=== PATIENT | female | born 1970 | race Caucasian/White ===

== ENCOUNTER 2022-02-26 12:01 | Emergency (ER) | payer OTHER, SELFPAY ==
[2022-02-26 12:25] VITALS: BP 138/74; PULSE 75; RESP 18; TEMP 36.4; O2SAT 96; BMI 36.2
--- NOTE | 2022-02-26 12:37 | DI.RAD.S_ITS ---
PROCEDURE: XR SHOULDER RT MIN 2V INDICATIONS: right shoulder pain TECHNIQUE: 3 views of the shoulder were acquired. COMPARISON: None. FINDINGS: Bones: No acute fractures or dislocations. No suspicious bony lesions. Visualized ribs appear intact. Soft tissues: No suspicious soft tissue calcifications. IMPRESSION: No acute osseous abnormality. If clinical suspicion and/or symptoms persist, additional imaging with repeat plain films, or advanced imaging (e.g. CT, MRI) may be helpful for further assessment. Dictated by: Amauri Barillas M.D. on 02/26/2022 at 13:34 Approved by: Amauri Barillas M.D. on 02/26/2022 at 13:38
--- NOTE | 2022-02-26 13:53 | ED_ITS ---
HPI - Extremity Injury (Upper) <Es Jones, [facility] - Last Filed: 02/26/22 16:21> General Chief Complaint: Extremity Injury, Upper Stated Complaint: poss. 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 She states that it is above ribs, and this is when she noticed the pain in her right shoulder initi ally. This is an L and I claim, states that she has pain with shoulder flexion, abduction, tenderness to palpation over the anterior speck of her right shoulder and across the top of her right shoulder. She denies having a primary care provider, she denies taking any medication for this, states that she has been riding her motorcycle and it is painful to ride her motorcycle. She denies any sensation changes in her fingers, denies any injury or pain in her elbow wrist or elsewhere. She endorses some muscle cramping in her the back of her shoulder, complains of worsening pain with activity. She states that she is currently moving, and doing a lot, has not stop to rest her shoulder at all. Patient states that she quit smoking and is right-handed. Related Data Home Medications Medication Instructions Recorded Confirmed Cyclobenzaprine Hydrochloride 10 mg PO #0 08/25/07 (CYCLOBENZAPRINE HCL) [MELOXICAM 15 MG PRN] #0 08/25/07 Propoxyphene/Acetamin - 0 PO * UK DOSE/FREQUENCY #0 10/13/07 (Darvocet-N 100) [NEURONTIN] #0 10/13/07 Previous Rx's Medication Instructions Recorded hydrocodone 5 mg-acetaminophen 325 1 tab PO BID PRN #14 tab 02/26/22 mg tablet lidocaine 5 % topical patch 1 patch TOPICAL DAILY PRN #15 ea 02/26/22 methocarbamol 500 mg tablet 500 mg PO TID #14 tab 02/26/22 naproxen 250 mg tablet 250 mg PO BID PRN #30 tab 02/26/22 Allergies Allergy/AdvReac Type Severity Reaction Status Date / Time No Known Drug Allergies Allergy Verified 02/26/22 12:33 Review of Systems <JABARI Louis - Last Filed: 02/26/22 16:21> Review of Systems Narrative: General: denies fever, chills, malaise, sweats, fatigue Head/Neck: denies headache, neck pain, dizziness Eyes: denies visual changes, eye pain Cardio: denies chest pain, palpitations, edema Respiratory: denies dyspnea, cough, orthopnea GI: denies abdominal pain, nausea, vomiting, or diarrhea : denies dysuria, hematuria, urinary retention, frequency or incontinence MSK: Endorses right shoulder pain the anterior aspect and along the top, denies any sensation changes or other joint pain, denies any muscle weakness Skin: denies rash, itching, skin lesions or other Neuro: denies numbness, tingling Patient History <JABARI Louis - Last Filed: 02/26/22 16:21> Social History Smoking Status: Former smoker Smoking Status: Former smoker alcohol intake frequency: holidays/special occasions only Substance Use Type: does not use Exam <JABARI Louis - Last Filed: 02/26/22 16:21> Narrative Exam Narrative: Independently reviewed vitals signs and nursing notes. General: cooperative, comfortable, in no acute distress, well developed and well groomed Head: atraumatic, symmetrical facial expressions Neck: supple, atraumatic, without lymphadenopathy. Eyes: pupils equal round and reactive, EOMI, conjunctiva normal Nose: nares patent, no rhinorrhea Mouth/Throat: uvula midline, moist mucus membranes Cardiovascular: regular rate and rhythm, no peripheral edema, warm extremities Respiratory: normal effort, able to speak in complete sentences, no audible wheezing, stridor, or rales. No retractions or tachypnea. GI: abdomen soft, nontender to palpation, nondistended, no masses, no exquisite tenderness with exam, without guarding or rebound. MSK: moves all extremities, ambulatory w/steady gait, neurovascularly intact, no weakness, no range of motion deficit in patient's right shoulder, shoulder flexion is limited due to pain only past 90?, no pain with extension of her right shoulder, pain worse with external rotation and abduction, tenderness to palpation along the anterior aspect, no tenderness over AC joint, scapula, clavicle, no sensation changes distal to her right shoulder. Full range of motion appears intact. Skin: brisk capillary refill, no rash, no erythema Neuro: normal speech and cognition, A&O x3, normal tone Psych: mental status is grossly normal, congruent mood, normal affect, pleasant and cooperative Initial Vital Signs Initial Vital Signs: Vital Signs Temperature 97.6 F 02/26/22 12:25 Pulse Rate 75 02/26/22 12:25 Respiratory Rate 18 02/26/22 12:25 Blood Pressure 138/74 02/26/22 12:25 Pulse Oximetry 96 02/26/22 12:25 <Juliane Ashofrd MD - Last Filed: 02/27/22 09:46> Initial Vital Signs Initial Vital Signs: Vital Signs Temperature 97.6 F 02/26/22 12:25 Pulse Rate 75 02/26/22 12:25 Respiratory Rate 18 02/26/22 12:25 Blood Pressure 138/74 02/26/22 12:25 Pulse Oximetry 96 02/26/22 12:25 Course <JABARI Louis - Last Filed: 02/26/22 16:21> Orders Ordered: Discontinued Medications Hydrocodone Bitart/Acetaminophen (Hydrocodone/Acet 5/325 Tablet) 1 tab PO NOW ONE Stop: 02/26/22 14:06 Last Admin: 02/26/22 14:10 Dose: 1 tab Documented by: OXANA Ketorolac Tromethamine (Ketorolac 30 Mg/Ml Vial) 15 mg IM NOW ONE Stop: 02/26/22 14:06 Last Admin: 02/26/22 14:11 Dose: 15 mg Documented by: OXANA Lidocaine (Lidocaine Patch 1 Each Adh..Patch) 1 each TOP NOW ONE Stop: 02/26/22 14:06 Last Admin: 02/26/22 14:11 Dose: 1 each Documented by: OXANA Vital Signs Vital signs: Vital Signs - 8 hr 02/26/22 12:25 02/26/22 14:15 Temperature 97.6 F Pulse Rate 75 63 Respiratory Rate 18 18 Blood Pressure 138/74 139/71 Pulse Oximetry 96 100 <Juliane Ashford MD - Last Filed: 02/27/22 09:46> Orders Ordered: Discontinued Medications Hydrocodone Bitart/Acetaminophen (Hydrocodone/Acet 5/325 Tablet) 1 tab PO NOW ONE Stop: 02/26/22 14:06 Last Admin: 02/26/22 14:10 Dose: 1 tab Documented by: OXANA Ketorolac Tromethamine (Ketorolac 30 Mg/Ml Vial) 15 mg IM NOW ONE Stop: 02/26/22 14:06 Last Admin: 02/26/22 14:11 Dose: 15 mg Documented by: OXANA Lidocaine (Lidocaine Patch 1 Each Adh..Patch) 1 each TOP NOW ONE Stop: 02/26/22 14:06 Last Admin: 02/26/22 14:11 Dose: 1 each Documented by: OXANA Vital Signs Vital signs: Vital Signs - 8 hr 02/26/22 12:25 02/26/22 14:15 Temperature 97.6 F Pulse Rate 75 63 Respiratory Rate 18 18 Blood Pressure 138/74 139/71 Pulse Oximetry 96 100 [facility] - Extremity Injury (Upper) <JABARI Louis - Last Filed: 02/26/22 16:21> Imaging Data Extremity x-ray #1: Radiologist's Impression: PROCEDURE:? XR SHOULDER RT MIN 2V ? INDICATIONS:? right shoulder pain ? TECHNIQUE:? 3 views of the shoulder were acquired.? ? COMPARISON:? None. ? FINDINGS:? ? Bones:? No acute fractures or dislocations.? No suspicious bony lesions.? Visualized ribs appear intact.? ? Soft tissues:? No suspicious soft tissue calcifications.? ? IMPRESSION:? No acute osseous abnormality.? If clinical suspicion and/or symptoms persist, additional imaging with repeat plain films, or advanced imaging (e.g. CT, MRI) may be helpful for further assessment. ? ? Dictated by: Amauri Barillas M.D. on 02/26/2022 at 13:34 ? ? Approved by: Amauri Barillas M.D. on 02/26/2022 at 13:38 ? [facility] Narrative Medical decision making narrative: This is a 51-year-old female presents to the emergency department with right shoulder pain for 1 month, states it is a work related injury from lifting heavy garbage in thrown into the garbage can. Patient does not have a primary care provider, has not sought any treatment for this thus far, x-rays negative for any osseous abnormality, dislocation, ribs appear intact and no acute fractures of the right shoulder., abduction, external rotation. Suspect likely rotator cuff injury, encouraged patient to ice, reduce repetitive movements, use anti- inflammatories, lidocaine patches, Voltaren gel for relief, recommend sling for when patient is out of the house, and gentle range of motion while at home, no jarring movements or exacerbation pain. Patient was given referral/contact information for [facility] for follow-up, and a referral was placed to Dr. Chapa, this is likely a nonsurgical, inflammatory injury which may improve with corticosteroid injection. Recommend follow-up with orthopedics for evaluation and then if recommended corticosteroid injection or ongoing supportive care. Patient is appropriate and amenable to discharge home. Vital signs are stable on repeat examination is unremarkable. Patient has been informed of results. Patient has been given strict return to ER precautions for any new or worsening symptoms. Patient understands to follow up closely with outpatient providers as instructed. Patient understands plan and agrees to discharge home. All questions and concerns answered at this time. Discharge Plan Departure Patient Disposition: Home Clinical Impression: Work related injury Acute shoulder pain Qualifiers: Laterality: right Qualified Code(s): M25.511 - Pain in right shoulder Instructions: Shoulder Tendinopathy, Rotator Cuff Injury Activity Restrictions/Additional Instructions: *You have been diagnosed with right shoulder pain from an injury and likely a anterior rotator cuff injury although this may be tendinitis or arthritis as well. Please establish care with a primary care provider, there is a phone number below if you would like to try 1 of hours. I would look into [facility] since you will be leaving so close to that. They may be able to order you physical therapy and advanced imaging of your right shoulder. Please call [facility] for an appointment and get an evaluation of your right shoulder. If they determine that nose injury is indicated and if they recommend steroid injection, please call Dr. iRos and make an appointment with him or obtain a referral from Orthopedics for this. Thank you for trusting us with your care, please wear the sling while your out of the house and avoid repetitive movement. Ice this frequently, take Tylenol and ibuprofen with food and water, try to minimize any jarring motion of your shoulder. [id number]. *What to do: *Please continue to take your regular medications as directed. [x ] New medication prescriptions sent to your pharmacy: [[facility] ] [ ] New medication written as a paper prescription [ ] No new medications given *Please follow up with your primary care provider in 2-3 days, call for an appointment. Let them know you were seen in the Emergency Department and that we asked that you be seen for follow-up. We will electronically transmit a record of today's note if your PCP is in our system *If you do not have a primary care provider please contact [phone] to establish care with one of the [facility] primary care providers. *Return to Emergency Department if you should have any new, worsening or concerning symptoms, such as [fever greater than 101F, chills, worsening pain, persistent vomiting or other bothersome symptoms] Prescriptions: New methocarbamol 500 mg tablet 500 mg PO TID Qty: 14 0RF lidocaine 5 % adhesive patch,medicated 1 patch topical DAILY PRN (Reason: pain) Qty: 15 0RF Rx Instructions: leave on most painful area for up to 12 hrs naproxen 250 mg tablet 250 mg PO BID PRN (Reason: pain) Qty: 30 0RF Rx Instructions: Take with food and water hydrocodone-acetaminophen 5-325 mg tablet 1 tab PO BID PRN (Reason: pain) Qty: 14 0RF No Action Cyclobenzaprine Hydrochloride (CYCLOBENZAPRINE HCL) 10 mg PO Qty: 0 0RF [MELOXICAM 15 MG PRN] Qty: 0 0RF Propoxyphene/Acetamin - (Darvocet-N 100) 0 PO * UK DOSE/FREQUENCY Qty: 0 0RF [NEURONTIN] Qty: 0 0RF Referrals: [facility] [Provider Group] - 5-7 days (Please call and schedule an appointment for evaluation of your right shoulder pain, concern for anterior rotator cuff injury.) Zunilda Lebron MD [Primary Care Provider] - Waqas Rios DO [Physician] - 5-7 days (Please call and schedule an appointment with Dr. Rios, he may be able to do a corticosteroid injection to help your pain.) <Juliane Ashford MD - Last Filed: 02/27/22 09:46> Cosign ED Attending Cosignature Attestation: I was immediately available in the department for consultation throughout this patient's visit. I agree with documentation as above. Juliane Ashford MD
[2022-02-26] MEDS: HYDROCODONE/ACET 5/325 TABLET 1 TAB PO (14:10)
[2022-02-26] MEDS: LIDOCAINE PATCH 1 EACH ADH..PATCH TOP (14:11)
[2022-02-26] MEDS: KETOROLAC 30 MG/ML VIAL 15 MG IM (14:11)
[2022-02-26 14:15] VITALS: BP 139/71; PULSE 63; RESP 18; O2SAT 100
== END 2022-02-26 14:28 | disposition home or self-care (01) ==
PROVIDERS: Emergency Provider Nurse Practitioner Critical Care Medicine; PCP Preventive Medicine Occupational Medicine
DX: M25.511 Pain in right shoulder (principal); X50.0XXA Overexertion from strenuous movement or load, initial encounter; Y99.0 Civilian activity done for income or pay
CPT/HCPCS: 73030; 96372; 99283; J1885

== ENCOUNTER 2023-01-19 22:45 | Emergency (ER) | payer OTHER, MEDICAID, SELFPAY ==
[2023-01-19 22:54] VITALS: BP 148/73; PULSE 83; RESP 18; TEMP 36.8; O2SAT 96; BMI 36.9
--- NOTE | 2023-01-19 23:33 | ED_ITS ---
HPI - General Adult General Chief complaint: Abdominal Pain Stated complaint: lt sided abd pain Time Seen by Provider: 01/19/23 23:28 Source: patient Mode of arrival: Ambulatory History of Present Illness HPI narrative: Patient is a 52-year-old female who is here for evaluation of left-sided lower abdominal pain. The symptoms have been going on for the past 3 days. No vomiting. No fevers. No vaginal bleeding. No change in urine symptoms. No change in bowel habits. Patient had very similar symptoms 2 years ago where she states she was admitted to the hospital for a couple days. This was at an outside facility. She stated that no diagnosis was definitively made. She was concerned that she waited too long the last time to come in and it resulted in her being in the hospital and she wanted to try to avoid that this time. Has not taken anything for the symptoms prior to arrival. Related Data Home Medications Medication Instructions Recorded Confirmed Cyclobenzaprine Hydrochloride 10 mg PO ##0 08/25/07 (CYCLOBENZAPRINE HCL) [MELOXICAM 15 MG PRN] ##0 08/25/07 Propoxyphene/Acetamin - 0 PO * UK DOSE/FREQUENCY ##0 10/13/07 (Darvocet-N 100) [NEURONTIN] ##0 10/13/07 Previous Rx's Medication Instructions Recorded hydrocodone 5 mg-acetaminophen 325 1 tab PO BID PRN pain #14 tabs 02/26/22 mg tablet lidocaine 5 % topical patch 1 patch topical DAILY PRN pain #15 02/26/22 ea methocarbamol 500 mg tablet 500 mg PO TID #14 tabs 02/26/22 naproxen 250 mg tablet 250 mg PO BID PRN pain #30 tabs 02/26/22 Allergies Allergy/AdvReac Type Severity Reaction Status Date / Time No Known Drug Allergies Allergy Verified 02/26/22 12:33 Review of Systems Constitutional Constitutional: Reports system reviewed and no additional complaints, except as documented Gastrointestinal Gastrointestinal: Reports system reviewed and no additional complaints, except as documented Genitourinary Genitourinary: Reports system reviewed and no additional complaints, except as documented Integumentary/Breasts Skin/Breast: Reports system reviewed and no additional complaints, except as documented Hematologic/Lymphatic On Anticoagulants: No Patient History Social History Smoking Status: Former smoker Smoking Status: Former smoker alcohol intake frequency: holidays/special occasions only Substance Use Type: does not use Exam Initial Vital Signs Initial Vital Signs: Vital Signs Temperature 98.3 F 01/19/23 22:54 Pulse Rate 83 01/19/23 22:54 Respiratory Rate 18 01/19/23 22:54 Blood Pressure 148/73 H 01/19/23 22:54 Pulse Oximetry 96 01/19/23 22:54 Oxygen Delivery Method Room Air 01/19/23 22:54 Const General: cooperative and comfortable GI Inspection: normal to inspection and non-distended Palpation: No firm, No guarding and tender Back/Spine/Pelvis Back: No CVA tenderness Neuro General: patient alert and patient awake Course Orders Ordered: ED Orders 01/19/23 23:01 EKG-12 Lead Stat 01/19/23 23:29 Complete Blood Count AUTO DIFF Stat Comprehensive Metabolic Panel Stat Lipase Stat 01/19/23 23:34 CT abdomen pelvis w con Stat Ondansetron HCl (Ondansetron 4 Mg Odt) 4 mg PO NOW PRN PRN Reason: Nausea And Vomiting Ondansetron HCl (Ondansetron 4 Mg/2 Ml Inj) 4 mg IV NOW PRN PRN Reason: Nausea And Vomiting Discontinued Medications Ketorolac Tromethamine (Ketorolac 30 Mg/Ml Vial) 30 mg IV NOW ONE Stop: 01/20/23 00:54 Vital Signs Vital signs: Vital Signs - 8 hr 01/19/23 22:54 Temperature 98.3 F Pulse Rate 83 Respiratory Rate 18 Blood Pressure 148/73 H Pulse Oximetry 96 Oxygen Delivery Method Room Air Medical Decision Making Medical Records Medical records reviewed: Yes I reviewed the patient's medical records. Lab Data 01/19/23 23:29 01/19/23 23:29 Labs: Lab Results 01/19/23 01/19/23 Range/Units 23:29 23:29 WBC 7.5 (4.5-11.0) X10^3/uL RBC 4.09 (4.0-5.2) X10^6/uL Hgb 12.7 (12.0-16.0) g/dL Hct 38.5 (36-46) % MCV 94.0 (80-100) fL MCH 31.1 (26-34) PG MCHC 33.1 (30-36) % RDW 13.4 (11.6-14.8) % Plt Count 180 (150-400) X10^3/uL Neut % (Auto) 51.2 (50-75) % Lymph % (Auto) 34.3 (25-40) % [place] % (Auto) 11.3 (3-14) % Eos % (Auto) 2.5 (2-4) % Baso % (Auto) 0.7 (0-2) % Neut # (Auto) 3800 (0403-0410) /uL Lymph # (Auto) 2600 (5358-0107) /uL [place] # (Auto) 800 (0-900) /uL Eos # (Auto) 200 (0-450) /uL Baso # (Auto) 0 (0-100) /uL Sodium 138 (137-145) mmol/L Potassium 4.0 (3.4-5.1) mmol/L Chloride 105 (98-107) mmol/L Carbon Dioxide 25 (22-32) mmol/L BUN 19 H (7-17) mg/dL Creatinine 0.62 (0.52-1.04) mg/dL Estimated GFR > 60 (>60) mL/min BUN/Creatinine Ratio 30.6 H (6-22) Glucose 110 H (70-100) mg/dL Calcium 8.7 (8.4-10.2) mg/dL Total Bilirubin 0.4 (0.2-1.3) mg/dL AST 30 (14-36) IU/L ALT 37 H (<35) IU/L Alkaline Phosphatase 80 (38-126) U/L Total Protein 7.1 (6.3-8.2) g/dL Albumin 4.2 (3.5-5.0) g/dL Globulin 2.9 (1.7-4.1) g/dL Albumin/Globulin Ratio 1.4 (1.0-2.8) Lipase 96 (23-300) U/L Imaging Data CT scan - abdomen/pelvis: Radiologist's Impression: PROCEDURE:? CT ABDOMEN PELVIS W CON ? INDICATIONS:? LLQ abd pain ? TECHNIQUE:? After the administration of IV contrast, axial sections were acquired from the lung bases to the pubic symphysis.? Coronal and sagittal reformats were performed.? For radiation dose reduction, the following was used:? automated exposure control, adjustment of mA and/or kV according to patient size. ? COMPARISON:? None. ? FINDINGS:? Image quality:? Excellent.? ? Lung bases:? There is minimal atelectasis.? ? Heart:? Heart is normal in size. ? ? ABDOMEN: Liver:? No mass lesion. Gallbladder:? Within normal limits without calcified gallstones.? ? Biliary ducts:? No biliary ductal dilatation.? ? Pancreas:? Unremarkable.? ? Spleen:? Normal in size.? ? Adrenal Glands:? No adrenal nodules.? ? Kidneys and Ureters:? No hydronephrosis.? There is a small fat density oval lesion in the left kidney measuring up to 1.3 cm consistent with an angiomyolipoma.? A few small hypodense foci within the right kidney are too small to characterize but likely represent cysts. ? Stomach and Bowel:? Stomach, small bowel loops, and colon are normal in caliber and wall thickness.? No evidence of appendicitis.? No definite evidence of diverticulitis.? Peritoneum:? There is a small pericolonic region of mild fat stranding with int ernal fat density anterior to the proximal sigmoid colon compatible with a mild inflammatory process and suggestive of epiploic appendagitis.? No abnormal intraperitoneal fluid.? No free air.? ? Ventral Wall: ? No hernia.? Abdominal Nodes:? No retroperitoneal or mesenteric adenopathy by size criteria.? Vessels:? Aorta and inferior vena cava are normal in size.? ? PELVIS: Pelvic Organs:? The uterus is enlarged.? There is a large lobulated enhancing mass within the left myometrium suggestive of an intramural fibroid.? This measures up to approximately 6.6 x 5.3 x 6.8 cm.? ? Bladder:? Unremarkable.? ? Pelvic Nodes: No enlarged lymph nodes.? Miscellaneous: No inguinal hernias are seen. ? ? ? Bones:? Visualized osseous structures demonstrate no suspicious focal lesions. ? IMPRESSION:? ? 1. Small region of inflammatory fat stranding with central fat density anterior to the proximal sigmoid colon is suggestive of epiploic appendagitis. ? 2. No definite evidence of diverticulitis. ? 3. Large enhancing lobulated mass within the myometrium statistically likely represents an intramural fibroid.? ? 4. 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 [facility] Narrative Medical decision making narrative: I was able to obtain records from her prior visit. She was seen in April of 2021 where she arrived in the emergency department for abdominal pain. She was admitted to the hospital for concern of diverticulitis with abscess or necrotic malignancy or a tubo-ovarian abscess. It appears with a note that the final diagnosis was a tubo-ovarian abscess. She was placed on antibiotics and subsequently discharged from the hospital without surgery. On today's visit patient's CT scan shows what appears to be a fibroid and also epiploic appendagitis. Either these 2 diagnoses could potentially be the cause of the patient's symptoms today however there does not appear to be an acute surgical pathology. No indication for antibiotics. No indication for admission to the hospital. I discussed all of this with the patient. We discussed the importance of following up with the primary doctor and also an OB doctor so if her symptoms continue she may need to have a hysterectomy. She can take Tylenol or ibuprofen for discomfort. She was given return precautions. She expressed understanding and agreement. Discharge Plan Departure Patient Disposition: Home Clinical Impression: Abdominal pain Instructions: DI for Abdominal Pain-Adult Activity Restrictions/Additional Instructions: You can take Tylenol and/or ibuprofen for any discomfort as needed. You have no restrictions on activity or diet. I do recommend that you may contact with a primary doctor for further evaluation. Return to the emergency department for n ew symptoms. Prescriptions: No Action Cyclobenzaprine Hydrochloride (CYCLOBENZAPRINE HCL) 10 mg PO Qty: 0 [MELOXICAM 15 MG PRN] Qty: 0 Propoxyphene/Acetamin - (Darvocet-N 100) 0 PO * UK DOSE/FREQUENCY Qty: 0 [NEURONTIN] Qty: 0 methocarbamol 500 mg tablet 500 mg PO TID Qty: 14 0RF lidocaine 5 % adhesive patch,medicated 1 patch topical DAILY PRN (Reason: pain) Qty: 15 0RF Rx Instructions: leave on most painful area for up to 12 hrs naproxen 250 mg tablet 250 mg PO BID PRN (Reason: pain) Qty: 30 0RF Rx Instructions: Take with food and water hydrocodone-acetaminophen 5-325 mg tablet 1 tab PO BID PRN (Reason: pain) Qty: 14 0RF Referrals: Zunilda Lebron MD [Primary Care Provider] - Stand Alone Forms: Patient Portal/API
--- NOTE | 2023-01-19 23:34 | DI.CT.S_ITS ---
PROCEDURE: CT ABDOMEN PELVIS W CON INDICATIONS: LLQ abd pain TECHNIQUE: After the administration of IV contrast, axial sections were acquired from the lung bases to the pubic symphysis. Coronal and sagittal reformats were performed. For radiation dose reduction, the following was used: automated exposure control, adjustment of mA and/or kV according to patient size. COMPARISON: None. FINDINGS: Image quality: Excellent. Lung bases: There is minimal atelectasis. Heart: Heart is normal in size. ABDOMEN: Liver: No mass lesion. Gallbladder: Within normal limits without calcified gallstones. Biliary ducts: No biliary ductal dilatation. Pancreas: Unremarkable. Spleen: Normal in size. Adrenal Glands: No adrenal nodules. Kidneys and Ureters: No hydronephrosis. There is a small fat density oval lesion in the left kidney measuring up to 1.3 cm consistent with an angiomyolipoma. A few small hypodense foci within the right kidney are too small to characterize but likely represent cysts. Stomach and Bowel: Stomach, small bowel loops, and colon are normal in caliber and wall thickness. No evidence of appendicitis. No definite evidence of diverticulitis. Peritoneum: There is a small pericolonic region of mild fat stranding with internal fat density anterior to the proximal sigmoid colon compatible with a mild inflammatory process and suggestive of epiploic appendagitis. No abnormal intraperitoneal fluid. No free air. Ventral Wall: No hernia. Abdominal Nodes: No retroperitoneal or mesenteric adenopathy by size criteria. Vessels: Aorta and inferior vena cava are normal in size. PELVIS: Pelvic Organs: The uterus is enlarged. There is a large lobulated enhancing mass within the left myometrium suggestive of an intramural fibroid. This measures up to approximately 6.6 x 5.3 x 6.8 cm. Bladder: Unremarkable. Pelvic Nodes: No enlarged lymph nodes. Miscellaneous: No inguinal hernias are seen. Bones: Visualized osseous structures demonstrate no suspicious focal lesions. IMPRESSION: 1. Small region of inflammatory fat stranding with central fat density anterior to the proximal sigmoid colon is suggestive of epiploic appendagitis. 2. No definite evidence of diverticulitis. 3. Large enhancing lobulated mass within the myometrium statistically likely represents an intramural fibroid. 4. 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 Dictated by: Cheikh Aburto M.D. on 01/20/2023 at 0:48 Approved by: Cheikh Aburto M.D. on 01/20/2023 at 0:53
[2023-01-19 23:40] LABS: Add Manual Diff / Slide Review NO; Basophils Absolute Auto 0 /uL (0-100); Basophils Percent Auto 0.7 % (0-2); Eosinophils Absolute Auto 200 /uL (0-450); Eosinophils Percent Auto 2.5 % (2-4); Hematocrit 38.5 % (36-46); Hemoglobin 12.7 g/dL (12.0-16.0); Lymphocytes Absolute Auto 2600 /uL (1100-4500); Lymphocytes Percent Auto 34.3 % (25-40); Mean Corpuscular HGB Conc 33.1 % (30-36); Mean Corpuscular Hemoglobin 31.1 PG (26-34); Monocytes Absolute Auto 800 /uL (0-900); Monocytes Percent Auto 11.3 % (3-14); Neutrophils Absolute Auto 3800 /uL (1500-7000); Neutrophils Percent Auto 51.2 % (50-75); Platelet Count 180 X10^3/uL (150-400); Red Blood Cell Count 4.09 X10^6/uL (4.0-5.2); Red Cell Distribution Width 13.4 % (11.6-14.8); White Blood Cell Count 7.5 X10^3/uL (4.5-11.0)
[2023-01-19 23:57] LABS: Alanine Aminotransferase 37 IU/L (<35); Albumin 4.2 g/dL (3.5-5.0); Albumin Globulin Ratio 1.4 (1.0-2.8); Alkaline Phosphatase 80 U/L (38-126); Aspartate Aminotransferase 30 IU/L (14-36); BUN Creatinine Ratio 30.6 (6-22); Bilirubin Total 0.4 mg/dL (0.2-1.3); Blood Urea Nitrogen 19 mg/dL (7-17); Calcium 8.7 mg/dL (8.4-10.2); Carbon Dioxide 25 mmol/L (22-32); Chloride 105 mmol/L (98-107); Estimated Glomerular Filt Rate > 60 mL/min (>60); Globulin 2.9 g/dL (1.7-4.1); Glucose 110 mg/dL (70-100); HEMOLYSIS 16 (0-50); Lipase 96 U/L (23-300); Sodium 138 mmol/L (137-145); Total Protein 7.1 g/dL (6.3-8.2)
[2023-01-20 00:16] VITALS: PULSE 80; O2SAT 97
[2023-01-20 00:30] VITALS: PULSE 82; O2SAT 97
[2023-01-20 01:00] VITALS: PULSE 72; O2SAT 95
[2023-01-20 01:04] VITALS: BP 130/63; PULSE 68; O2SAT 96
[2023-01-20] MEDS: KETOROLAC 30 MG/ML VIAL IV (01:10)
== END 2023-01-20 01:31 | disposition home or self-care (01) ==
PROVIDERS: Emergency Provider Emergency Medicine; PCP Preventive Medicine Occupational Medicine
DX: R10.32 Left lower quadrant pain (principal)
CPT/HCPCS: 36415; 74177; 80053; 83690; 85025; 96374; 99284; J1885; Q9967

== ENCOUNTER 2024-04-16 15:30 | Emergency (ER) | payer OTHER, MEDICAID, SELFPAY ==
[2024-04-16] VITALS (11 sets, daily range): BP systolic 139–146; BP diastolic 63–85; PULSE 61–85; RESP 17–24; TEMP 37; O2SAT 94–100; BMI 35.9
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
[2024-04-16 16:39] LABS: Add Manual Diff / Slide Review NO; Basophils Absolute Auto 100 /uL (0-100); Basophils Percent Auto 0.5 % (0-2); Eosinophils Absolute Auto 100 /uL (0-450); Eosinophils Percent Auto 0.9 % (2-4); Hematocrit 41.8 % (36-46); Lymphocytes Absolute Auto 2000 /uL (1100-4500); Lymphocytes Percent Auto 18.5 % (25-40); Mean Corpuscular HGB Conc 33.4 % (30-36); Mean Corpuscular Hemoglobin 31.3 PG (26-34); Mean Corpuscular Volume 93.5 fL (80-100); Monocytes Absolute Auto 600 /uL (0-900); Monocytes Percent Auto 5.7 % (3-14); Neutrophils Absolute Auto 8000 /uL (1500-7000); Neutrophils Percent Auto 74.4 % (50-75); Platelet Count 174 X10^3/uL (150-400); Red Blood Cell Count 4.47 X10^6/uL (4.0-5.2); Red Cell Distribution Width 13.3 % (11.6-14.8); White Blood Cell Count 10.8 X10^3/uL (4.5-11.0)
[2024-04-16 16:45] LABS: INR 0.9 (0.9-1.3); Prothrombin Time 10.1 SECONDS (9.4-12.5)
[2024-04-16 16:48] LABS: PTT Partial Thromboplastin Tim 26 SECONDS (25.1-36.5)
[2024-04-16 16:49] LABS: Lactate (Lactic Acid) 1.6 mmol/L (0.7-2.1)
[2024-04-16 16:51] LABS: Alanine Aminotransferase 26 IU/L (<35); Albumin 4.5 g/dL (3.5-5.0); Albumin Globulin Ratio 1.6 (1.0-2.8); Alkaline Phosphatase 96 U/L (38-126); Aspartate Aminotransferase 30 IU/L (14-36); BUN Creatinine Ratio 23.8 (6-22); Bilirubin Total 0.7 mg/dL (0.2-1.3); Blood Urea Nitrogen 15 mg/dL (7-17); Calcium 8.9 mg/dL (8.4-10.2); Carbon Dioxide 22 mmol/L (22-32); Chloride 110 mmol/L (98-107); Estimated Glomerular Filt Rate > 60 mL/min (>60); Ethanol (ETOH) < 10 mg/dL; Globulin 2.8 g/dL (1.7-4.1); Glucose 121 mg/dL (70-100); HEMOLYSIS < 15 (0-50); Lipase 65 U/L (23-300); Potassium 3.8 mmol/L (3.4-5.1); Sodium 139 mmol/L (137-145); Total Protein 7.3 g/dL (6.3-8.2)
[2024-04-16] MEDS: ONDANSETRON 4 MG/2 ML INJ IV (17:04)
[2024-04-16] MEDS: HYDROMORPHONE 0.5 MG INJ IV ×2 (17:04→18:16)
[2024-04-16 17:36] LABS: Appearance Urine UA CLEAR; Bilirubin Urine UA NEGATIVE (NEGATIVE); Color Urine UA YELLOW; Glucose Urine UA NEGATIVE (Negative); Ketones Urine UA NEGATIVE (NEGATIVE); Leukocyte Esterase Urine UA NEGATIVE (NEGATIVE); Nitrite Urine UA NEGATIVE (Negative); Occult Blood Urine UA 1+ (Negative); Protein Urine UA 1+ (Negative); UR Morphine/Opiate cutoff 300 Negative (Negative); Ur Creatinine Normal (Normal); Ur Specific Gravity Normal (Normal); Urine Amphetamines Negative (Negative); Urine Barbiturates Negative (Negative); Urine Benzodiazepines Negative (Negative); Urine Cocaine Negative (Negative); Urine MDMA Negative (Negative); Urine Methadone Negative (Negative); Urine Methamphetamines Negative (Negative); Urine Phencyclidine Negative (Negative); Urine Tetrahydrocannabinol Positive (Negative); Urine Tricyclic Antidepressant Negative (Negative); Urine pH Normal (Normal); Urobilinogen Urine UA 0.2 E.U./dL (0.2)
[2024-04-16 17:37] LABS: Pregnancy Test Urine Negative (Negative); Urine Oxycodone Negative (Negative)
[2024-04-16 17:42] LABS: Bacteria Urine Occasional (0-1); Culture Indicated Urine Cult Not Indicated; Hyaline Casts Urine 0-1/LPF; Mucus Urine 1+ (Negative); RBC Urine 1-5/HPF (0-5/HPF); Squamous Epithelial Cell Urine 1-5 /HPF (0-5/HPF); Urine Volume 10mL (spun); WBC Urine 1-5/HPF (0-5/HPF)
[2024-04-16] MEDS: TRAMADOL 50 MG PREPACK 1 BOTTLE MISC (19:02)
[2024-04-16] MEDS: OXYCODONE/APAP 5/325 PREPACK 1 BOTTLE MISC (19:07)
[2024-04-16] MEDS: ALBUTEROL HFA PREPACK 1 BOX MISC (19:21)
== END 2024-04-16 19:46 | disposition home or self-care (01) ==
PROVIDERS: Emergency Provider Emergency Medicine; PCP Preventive Medicine Occupational Medicine
DX: S22.42XA Multiple fractures of ribs, left side, initial encounter for closed fracture (principal); S00.531A Contusion of lip, initial encounter; V28.09XA Other motorcycle driver injured in noncollision transport accident in nontraffic accident, initial encounter; S52.501A Unspecified fracture of the lower end of right radius, initial encounter for closed fracture; S50.812A Abrasion of left forearm, initial encounter
CPT/HCPCS: 70450; 71275; 72125; 73110; 74177; 80053; 80305; 80320; 81001; 81025; 83605; 83690; 85025; 85610; 85730; 86850; 86900; 86901; 93005; 96374; 96375; 96376; 99284; 99291; J1170; J2405; Q9967

== ENCOUNTER → 2024-05-16 09:25 | Outpatient (CLI) | payer OTHER, MEDICAID, SELFPAY ==
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
[2024-05-16 10:31] LABS: Cholesterol 200 mg/dL (140-199); HDL Cholesterol 60 mg/dL (40-60); LDL Cholesterol Calculated 102 mg/dL (<100); Triglycerides 189 mg/dL (35-150)
[2024-05-17 14:58] LABS: HIV 1 & 2 Ab/Ag 4th Gen Combo NEGATIVE (NEGATIVE); Hep C Virus Ab w/Reflex Quant NEGATIVE s/c (NEGATIVE)
== END ==
LOC: LAB 09:26
PROVIDERS: PCP Family Medicine; Referring Provider Family Medicine; Visit Provider Family Medicine
DX: Z11.59 Encounter for screening for other viral diseases (principal); Z11.4 Encounter for screening for human immunodeficiency virus [HIV]; S22.32XA Fracture of one rib, left side, initial encounter for closed fracture; E66.9 Obesity, unspecified; R73.01 Impaired fasting glucose
CPT/HCPCS: 36415; 71101; 80061; 83036; 86803; 87389

== ENCOUNTER → 2024-07-18 14:48 | Outpatient (CLI) | payer OTHER, MEDICAID, SELFPAY ==
--- NOTE | 2024-07-18 14:49 | DI.RAD.S_ITS ---
PROCEDURE: XR KNEE LT 3V INDICATIONS: Knee pain TECHNIQUE: 3 views of the knee were acquired. COMPARISON: None. FINDINGS: Bones: No acute displaced fracture or dislocation. Soft tissues: Possible trace joint fluid. IMPRESSION: No acute radiographic abnormality. If there is high concern for further derangement, consider MRI evaluation. Dictated by: Donnie Frazier M.D. on 07/18/2024 at 17:01 Approved by: Donnie Frazier M.D. on 07/18/2024 at 17:02
== END ==
PROVIDERS: PCP Family Medicine; Referring Provider Nurse Practitioner Family; Visit Provider Nurse Practitioner Family
DX: M25.569 Pain in unspecified knee (principal)
CPT/HCPCS: 73562

== ENCOUNTER → 2024-10-16 15:34 | Outpatient (CLI) | payer OTHER, MEDICAID, SELFPAY ==
[2024-10-16 18:08] LABS: Hemoglobin A1C% w Est Avg Glu 5.7 % (4.0-6.0)
== END ==
PROVIDERS: PCP Family Medicine; Referring Provider Family Medicine; Visit Provider Family Medicine
DX: R73.01 Impaired fasting glucose (principal)
CPT/HCPCS: 36415; 83036

== ENCOUNTER → 2025-02-28 15:46 | Outpatient (CLI) | payer OTHER, MEDICAID, SELFPAY ==
--- NOTE | 2025-02-28 15:48 | DI.MRI.S_ITS ---
PROCEDURE: MR KNEE LT WO CON INDICATIONS: LT knee pain TECHNIQUE: Noncontrast sagittal PD fast spin echo and T2 fast spin echo with fat saturation, sagittal 3-D FLASH with fat saturation; coronal T1 spin echo and PD fast spin echo with fat saturation, and axial PD fast spin echo with fat saturation through the knee. COMPARISON: [facility], CR, XR KNEE LT 3V, 07/18/2024, 14:54. FINDINGS: Image quality: Excellent. Menisci: The medial and lateral menisci demonstrate normal morphology and internal signal. The meniscal root ligaments appear intact. Cruciate ligaments: There is mild posterior bowing of the anterior cruciate ligament without surrounding edema. Posterior cruciate ligament is intact. Medial structures: The medial collateral ligament appears intact. Small amount of fluid deep to the medial collateral ligament. Visualized portions of the pes anserinus tendons appear normal. No abnormal bursal fluid. Lateral structures: The lateral collateral ligament, long and short heads of the biceps femoris tendon appear intact. The popliteus tendon appears normal. Iliotibial band appears normal. Anterior structures: The quadriceps and patellar tendons appear intact. Patellar alignment is normal. No femoral trochlear dysplasia or ventral trochlear prominence. No edema in the infrapatellar fat pad. Bones and cartilage: No bone marrow contusions or fractures. Mild articular cartilage loss diffusely overlies the weight-bearing aspects of the medial femoral condyle and medial tibial plateau. Joint space: There is physiologic knee joint fluid. Trace Delvalle's cyst. Normal appearing synovial plicae are incidentally noted. IMPRESSION: 1. 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 2. Medial collateral ligament bursitis. 3. Trace Delvalle's cyst. Dictated by: Kade Santos M.D. on 02/28/2025 at 16:45 Approved by: Kade Santos M.D. on 02/28/2025 at 16:47
== END ==
PROVIDERS: PCP Family Medicine; Referring Provider Family Medicine; Visit Provider Student in an Organized Health Care Education/Training Program
DX: M23.92 Unspecified internal derangement of left knee (principal); M70.52 Other bursitis of knee, left knee
CPT/HCPCS: 73721

== ENCOUNTER → 2025-10-29 13:46 | Outpatient (CLI) | payer OTHER, SELFPAY ==
[2025-10-29 14:35] LABS: Hemoglobin A1C% w Est Avg Glu 5.8 % (4.0-6.0)
== END ==
PROVIDERS: PCP Family Medicine; Referring Provider Family Medicine; Visit Provider Family Medicine
DX: R73.01 Impaired fasting glucose (principal)
CPT/HCPCS: 36415; 83036